=== PATIENT | female | born 2000 | race Caucasian/White ===

== ENCOUNTER 2024-09-20 02:19 | Emergency (ER) | payer OTHER, SELFPAY ==
[2024-09-20 02:20] VITALS: BMI 25.3
[2024-09-20 02:22] VITALS: BP 130/88
[2024-09-20 02:43] VITALS: BP 128/75
[2024-09-20 03:00] VITALS: BP 124/75
[2024-09-20 03:32] LABS: % Basophils 0.6 % (0-2); % Eosinophils 1.4 % (0-6); % Immature Granulocytes 0.3 % (0-0.5); % Monocytes 6.9 % (1.7-9.3); % Neutrophils 59.8 % (42.2-75.2); Absolute Basophils 0.1 10^3/uL (0-0.2); Absolute Eosinophils 0.1 10^3/uL (0-0.7); Absolute Lymphocytes 2.9 10^3/uL (1.2-3.4); Absolute Monocytes 0.7 10^3/uL (0.1-0.6); Absolute Neutrophils 5.7 10^3/uL (1.4-6.5); Hematocrit 30.4 % (37.0-47.0); Hemoglobin 10.3 g/dL (12.0-16.0); Mean Corp Hgb Conc. 33.9 g/dL (33.0-37.0); Mean Corpuscular Hgb 27.2 pg (27.0-31.0); Mean Corpuscular Volume 80.4 fL (81.0-99.0); Nucleated Red Blood Cells % 0 %; Platelet Count 345 10^3/uL (130-400); Red Blood Cell Count 3.78 10^6/uL (4.20-5.40); Red Cell Dist. Width 13.1 % (11.5-14.5); White Blood Cell Count 9.5 10^3/uL (4.8-10.8)
[2024-09-20 03:36] LABS: COVID-19 Antigen Positive (Negative)
[2024-09-20 03:52] LABS: ALT (SGPT) 32 U/L (0-35); AST (SGOT) 28 U/L (14-36); Albumin 3.8 g/dl (3.5-5.0); Alkaline Phosphatase 65 U/L (38-126); Blood Urea Nitrogen 10 mg/dl (7-17); Calcium 9.3 mg/dl (8.4-10.2); Carbon Dioxide 18 mmol/L (22-30); Chloride 105 mmol/L (98-107); Glucose 95 mg/dl (70-99); Potassium 3.7 mmol/L (3.5-5.1); Sodium 135 mmol/L (135-145); Total Bilirubin 0.1 mg/dl (0.2-1.3); Total Protein 6.7 g/dl (6.3-8.2); eGFR > 60.00
[2024-09-20 04:00] VITALS: BP 108/75
--- NOTE | 2024-09-20 04:14 | ED.GENMED ---
History of Present Illness
General
Chief Complaint: Problems
Source: patient and spouse
Exam Limitations: none
Time Seen by Provider: 09/20/24 02:57
Nursing documentation reviewed up to this point in time: agreed with
History of Present Illness
History of Present Illness:
24-year-old female with no chronic medical issues who is currently 12 weeks presents to the emergency department for evaluation of chest pain. Patient reports symptoms started just prior to arrival and have been constant. She reports a
sharp pain underneath her left lower rib. She says it is worse when she takes a deep breath. No relieving factors noted. She says that when symptoms started she did feel nauseated and vomited. She says she felt mildly lightheaded and very weak
although the symptoms have resolved. She said she felt mildly short of breath although this has improved. She has not noticed any swelling in the legs. She does note that she is just recently getting over a cold she says she had 2 weeks of cough
and rhinorrhea although cough seems to have resolved. She denies any fevers or chills. She denies any abdominal pain. She denies any UTI symptoms. Denies any vaginal bleeding or leakage of fluids. She follows with [facility] through [facility].
Review of Systems
Review of Systems
All Other Systems: ROS reviewed and negative except as documented in HPI and ROS
Constitutional: Denies fever
Respiratory: Reports trouble breathing; Denies cough
Cardiac: Reports chest pain; Denies palpitations
ABD/GI: Reports nausea and vomiting; Denies abdominal pain
: Denies dysuria, frequency, flank pain or bleeding
Musculoskeletal: Denies edema
Neurological: Reports dizzy; Denies headache
Phy Exam
Physical Exam
Physical Exam:
General: Awake, alert, oriented x3; no acute distress
Head: Normocephalic, atraumatic
Eyes: Conjunctiva normal
Throat: Airway intact, handling secretions
Neck: Trachea midline, supple without meningismus
Lungs: Clear to auscultation bilaterally, no wheezing, rales, rhonchi
Heart: Regular rate and rhythm, no murmurs, gallops, or rubs; patient does have some reproducible tenderness left lower ribs in the area of concern
Abd: Soft, non distended, nontender
Neuro: No gross deficits
Extremities: No edema in extremities, equal pulses in all extremities
Scores
Heart Failure Risk
Heart Failure Risk Score: Not Applicable
Heart Score for Chest Pain Patients
STEMI patient?: Not applicable
Withdrawal Assessment of Alcohol
Withdrawal Assessment Completed?: Not applicable
Course
Orders/Labs/Results
Orders:
Orders
09/20/24 03:10
COVID-19 Antigen Urgent
Source: Nasal Swab
Complete Blood Count/With Diff Urgent
Comprehensive Metabolic Panel Urgent
Influenza A+B Rapid Molecular Urgent
YURY Source: Nasal Swab
Specimen Description:
09/20/24 04:12
US Periph Venous LOWER Ext Vin Urgent
Comment:
Reason For Exam: chest pain, --eval for DVT
09/20/24 04:14
Electrocardiogram (*1) Urgent
Reason for Study: Chest Pain
EKG- Treatment ONCE
09/20/24 04:22
D-Dimer Urgent
Troponin I Urgent
09/20/24 04:52
Electrocardiogram (*1) Urgent
Reason for Study: Shortness of Breath
EKG- Treatment ONCE
Abnormal Lab Results
09/20/24
03:10
RBC 3.78 L 10^6/uL
(4.20-5.40)
Hgb 10.3 L g/dL
(12.0-16.0)
Hct 30.4 L %
(37.0-47.0)
MCV 80.4 L fL
(81.0-99.0)
Absolute Monos (auto) 0.7 H 10^3/uL
(0.1-0.6)
Carbon Dioxide 18 L mmol/L
(22-30)
Creatinine 0.5 L mg/dL
(0.6-1.0)
Total Bilirubin 0.1 L mg/dl
(0.2-1.3)
SARS-CoV-2 Antigen Positive A
(Negative)
09/20/24 03:10
09/20/24 03:10
Vital Signs
Initial and Last Documented VS:
Initial Vital Signs
Temp Pulse Resp BP Pulse Ox
36.8 C 86 21 130/88 100
09/20/24 02:22 09/20/24 02:22 09/20/24 02:22 09/20/24 02:22 09/20/24 02:22
Last Documented Vital Signs
Temp Pulse Resp BP Pulse Ox
37.1 C 77 18 114/64 98
09/20/24 04:00 09/20/24 05:15 09/20/24 05:15 09/20/24 05:00 09/20/24 05:15
Information
Weeks gestation: N/A
Location: N/A
MDM/Problems Addressed
Differential Diagnosis Includes:
Pleurisy, bronchitis/pneumonia, PE, pericarditis, costochondritis, GERD
MDM/Problems Addressed:
24-year-old female who is 12 weeks presents to the ER for evaluation of chest pain that started rather abruptly in the setting of recent URI. Vitals are normal here including heart rate in the 80s, pulse ox 100% on room air. Physical exam
as above. She had labs sent in triage including a CBC which shows marginal anemia in the setting of known . CMP shows marginal metabolic acidosis likely from vomiting. She was swabbed for COVID and flu and her COVID swab is positive
which likely accounts for recent URI. I had a long discussion with the patient�possible that she has some costochondritis from recent coughing, possible that this is GERD in the setting of however given that symptoms started rather
abruptly tonight and are still present particular with inspiration PE must be considered especially in . She does have normal respiratory rate, normal pulse ox, normal heart rate and reproducible tenderness which go against PE and my
clinical gestalt is that this is likely not PE but I think and positive COVID test put her at high enough risk that she should be evaluated in the setting of abrupt onset symptoms. We spoke about proceeding with CTA despite and
the risks involved with that versus ruling out with more conservative testing such as D-dimer and lower extremity Dopplers. Will start with D-dimer and lower extremity ultrasound; will also check EKG and troponin. Monitor closely and reassess
after the above.
Fortunately both D-dimer and troponin undetectable. Negative D-dimer goes strongly against diagnosis of PE, patient is currently in ultrasound of the lower extremities, awaiting this result.
Ultrasound called back negative for DVT bilaterally. With this finding in addition to negative D-dimer and low clinical suspicion for PE I think this is sufficient to rule out diagnosis of pulmonary embolism�patient's heart rate, respiratory rate,
pulse ox all remain normal. I do think it is much more likely that her symptoms are from coughing in the setting of positive COVID test. Considered chest x-ray to rule out pneumonia but patient says that she wishes to forego radiation and she has
normal pulse ox, normal respiratory rate, clear lungs and so I think foregoing chest x-ray is reasonable at this point. Stable for discharge advised Tylenol as needed. Follow-up closely with PCP and [facility]. She feels very comfortable with this
plan. All questions answered.
*Radiology
Radiology exam reviewed: radiology read reviewed
*Pulse Oximetry
Patient hypoxic: no
*EKG
Interpreted by ED Provider?: Yes
Heart Rate: 66
Rate: normal
Rhythm: sinus
[place]: normal axis
Interval: normal interval
QRS Pattern: normal QRS
Ischemia: no ischemia
*Critical Care Note
Total Time (30-74mins, 75-104mins- exclusive of procedures): Not Applicable
Data Reviewed
Source: patient and spouse
Further Testing Considered But Not Given:
Considered CT chest, considered chest x-ray
ED Attending Note
-
Portions of this chart may have been created with voice recognition software.� Occasional wrong word or��sound alike� substitutions may have occurred due to the inherent limitations of voice recognition software.
Discharge Plan
Departure
Patient Disposition: Home (Routine Discharge)
Date of Disposition: 09/20/24
Time of Disposition: 05:51
Patient with high blood pressure during this ER visit?: No
Discharge Problem:
Chest pain
Instructions: Chest Pain PCP Follow Up
Referrals:
Kary Broderick MD [Family Provider] - Follow up in 2-3 days
Stand Alone Forms: Return to Work
Activity Restrictions/Additional Instructions:
Thank you for visiting the Emergency Department at [facility].
1. Please schedule a follow up appointment as directed. Call first thing tomorrow morning to make an appointment.
2. If indicated, please take your medications as instructed and indicated on discharge paperwork.
3. If any of your symptoms do not improve, or persist, or become more severe within 6-12 hours, please return to the emergency department for further care.
4. Please return to the emergency department if you develop a headache, neck pain/stiffness, fever greater than 100.4F, chest pain, shortness of breath, persistent nausea, vomiting, slurred speech, difficulty walking, numbness/tingling, weakness,
signs of infection or any other symptoms that are worrisome to you.
Please call [phone] if you have any questions.
Interventions
Interventions:
*Risk Screen - Suicide Last Done: 09/20/24 02:22
*General Assessment Last Done: 09/20/24 02:52
*Neglect/Abuse Screening Last Done: 09/20/24 02:53
ED- Fall Risk Assessment Last Done: 09/20/24 04:43
*ED COVID-19 Vaccine History Last Done: 09/20/24 04:43
*Nursing Disposition Last Done: 09/20/24 06:51
ED-Female Genitourinary Assessment Last Done: 09/20/24 02:45
Discharge Date and Time
Discharge Date/Time: 09/20/24 06:52
Print Language: BENINESE
[2024-09-20 04:46] LABS: D-Dimer < 0.27 ug/mlFEU (0.00-0.50)
[2024-09-20 04:57] LABS: Troponin I < 0.012 ng/ml
[2024-09-20 05:00] VITALS: BP 114/64
== END 2024-09-20 06:52 | disposition home or self-care (01) ==
LOC: EMR 02:19
PROVIDERS: EMERGENCY PHYSICIAN Emergency Medicine; FAMILY PHYSICIAN Internal Medicine
DX: O98.511 Other viral diseases complicating pregnancy, first trimester (principal); U07.1 COVID-19; O99.891 Other specified diseases and conditions complicating pregnancy; R07.9 Chest pain, unspecified; O99.011 Anemia complicating pregnancy, first trimester; O99.281 Endocrine, nutritional and metabolic diseases complicating pregnancy, first trimester; E87.20 Acidosis, unspecified; Z3A.12 12 weeks gestation of pregnancy
CPT/HCPCS: 99284; 80053; 84484; 85025; 85379; 87502; 87811; 93005; 93970